=== PATIENT | female | born 1945 | race Two or more races ===

== ENCOUNTER → 2023-03-24 | Outpatient (CLI) | payer MEDICARE, BC ==
[~2023-03-24] VITALS: Ht 149.9 cm; Wt 66.7 kg
== END | disposition home or self-care (01) ==
LOC: Rad HDHVI 13:20
PROVIDERS: ATTEND Internal Medicine Cardiovascular Disease
DX: Z01.810 Encounter for preprocedural cardiovascular examination (principal); I48.91 Unspecified atrial fibrillation; I10 Essential (primary) hypertension; Q23.1 Congenital insufficiency of aortic valve; R06.02 Shortness of breath; R94.31 Abnormal electrocardiogram [ECG] [EKG]; E78.00 Pure hypercholesterolemia, unspecified; Z79.82 Long term (current) use of aspirin; Z79.899 Other long term (current) drug therapy
CPT/HCPCS: 78452; 93017; 96374; A9500

== ENCOUNTER → 2023-04-28 | Outpatient (CLI) | payer MEDICARE, BC ==
[~2023-04-28] MED LIST: ASPI-543 PO; FURO40TA4 PO; LEVO88TA4 PO; LOSA50TA46 PO; METO-289 PO; POTA-228 PO; RIVA20TA PO; SIMV40TA18 PO
[2023-04-28 13:07] VITALS: BP 115/66; PULSE 109; RESP 18; O2SAT 97
[2023-04-28 13:25] VITALS: BP 104/58; PULSE 92; RESP 18; O2SAT 97
== END | disposition home or self-care (01) ==
LOC: CHF HDHVI 12:52
PROVIDERS: ATTEND Internal Medicine Cardiovascular Disease
DX: Z01.818 Encounter for other preprocedural examination (principal); I48.91 Unspecified atrial fibrillation; R94.31 Abnormal electrocardiogram [ECG] [EKG]; I51.7 Cardiomegaly
CPT/HCPCS: 93005; G0463

== ENCOUNTER 2023-05-01 07:33 | Day surgery (SDC) | payer MEDICARE, BC ==
[2023-04-28 15:00] LABS: Basophils # (auto) 0.1 10 ^3/uL (0-0.2); Basophils % (auto) 0.6 % (0.0-2.0); Eosinophils # (auto) 0.1 10 ^3/uL (0-0.8); Eosinophils % (auto) 1.4 % (0.0-7.0); Hematocrit 41.6 % (36.0-46.0); Hemoglobin 14.2 g/dL (12.2-16.2); Lymphocytes % (auto) 22.3 % (10.0-50.0); Mean Corpuscular Volume 94.2 fL (80.0-100.0); Monocytes # (auto) 0.8 10 ^3/uL (0-1.3); Monocytes % (auto) 8.6 % (0.0-12.0); Neutrophils # (auto) 5.9 10 ^3/uL (1.6-8.6); Neutrophils % (auto) 67.1 % (37.0-80.0); Nucleated Red Blood Cells % 0.1 %; Red Blood Cells 4.42 10^6/uL (4.0-5.20); Red Cell Distribution Width 14.4 % (11.8-14.3); White Blood Cell 8.9 10^3/uL (4.4-10.8)
[2023-04-28 15:18] LABS: INR 1.4 (0.9-1.15); Partial Thromboplastin Time 37.3 SEC (24.5-34.5); Prothrombin Time 14.4 sec (9.3-11.8)
[2023-04-28 15:46] LABS: Anion Gap 10 (5-15); Carbon Dioxide 28 mmol/L (20-30); Chloride 98 mmol/L (98-107); Potassium 3.2 mmol/L (3.5-5.1); Sodium 136 mmol/L (136-145)
[2023-04-28 15:48] LABS: Calcium 9.4 mg/dL (8.7-10.4)
[2023-04-28 15:52] LABS: Blood Urea Nitrogen 17 mg/dL (9-23); Glucose 91 mg/dL (74-106)
[2023-05-01] VITALS (11 sets, daily range): BP systolic 80–117; BP diastolic 46–68; PULSE 88–105; RESP 12–21; TEMP 97.6; O2SAT 94–97
[~2023-05-01] VITALS: Ht 149.9 cm; Wt 64.4 kg
[2023-05-01] MEDS ORDERED: fentaNYL CITRATE 100 MCG/2 ML VL ONE (09:57)
[2023-05-01] MEDS ORDERED: ANGIOMAX 250 MG VIAL IV ONE (09:57)
[2023-05-01] MEDS ORDERED: MIDAZOLAM HCL 2MG/2ML 2ml VIAL (1mg/ml) ONE (09:58)
[2023-05-01] MEDS ORDERED: LIDOCAINE 2%HCL (LOCAL ANESTH.) INJ 20ML MDV ONE (09:58)
[2023-05-01] MEDS ORDERED: IOHEXOL 350 MG/ML 100ML IJ ONE (09:58)
[2023-05-01] MEDS ORDERED: methylPREDNISolone SOD SUCC 125 MG/2 ML VL ONE (09:58)
[2023-05-01] MEDS ORDERED: SODIUM CHL 0.9% 0 ML ONE (09:58)
[2023-05-01] MEDS ORDERED: diphenhdrAMINE HCL 50 MG/1 ML VL ONE (09:59)
[2023-05-01] MEDS ORDERED: FAMOTIDINE (10MG/ML) 2ML VL IV ONE (09:59)
== END 2023-05-01 13:49 | disposition home or self-care (01) ==
LOC: CATH 07:33
PROVIDERS: ATTEND Internal Medicine Cardiovascular Disease
DX: I48.91 Unspecified atrial fibrillation (principal); I11.0 Hypertensive heart disease with heart failure; I25.2 Old myocardial infarction; E78.5 Hyperlipidemia, unspecified; I50.22 Chronic systolic (congestive) heart failure
CPT/HCPCS: 36415; 80048; 85025; 85610; 85730; 93458; C1894; J1200; J1644; J2250; J2930; J3010; Q9967; 99152; J3490

== ENCOUNTER → 2023-06-04 | Outpatient (CLI) | payer MEDICARE, BC ==
[~2023-06-04] MED LIST changes: +FURO20TA3 PO
[2023-06-04 09:10] VITALS: BP 137/81; PULSE 112; RESP 16; O2SAT 98
[2023-06-04 09:35] VITALS: BP 134/74; PULSE 103; RESP 16; O2SAT 98
== END | disposition home or self-care (01) ==
LOC: CHF HDHVI 09:03
PROVIDERS: ATTEND Internal Medicine Cardiovascular Disease
DX: Z01.818 Encounter for other preprocedural examination (principal); R94.31 Abnormal electrocardiogram [ECG] [EKG]; I10 Essential (primary) hypertension; R06.02 Shortness of breath; I48.91 Unspecified atrial fibrillation
CPT/HCPCS: 93005; G0463

== ENCOUNTER 2023-06-05 10:11 | Day surgery (SDC) | payer MEDICARE, BC ==
[2023-06-04 11:07] LABS: Basophils # (auto) 0 10 ^3/uL (0-0.2); Basophils % (auto) 0.6 % (0.0-2.0); Eosinophils # (auto) 0.1 10 ^3/uL (0-0.8); Eosinophils % (auto) 1.1 % (0.0-7.0); Hematocrit 39.3 % (36.0-46.0); Hemoglobin 13.2 g/dL (12.2-16.2); Lymphocytes # (auto) 1.3 10 ^3/uL (0.4-5.4); Mean Corpuscular Hemoglobin 31.8 pg (28.0-32.0); Mean Corpuscular Hgb Conc. 33.7 g/dL (32.0-36.0); Mean Corpuscular Volume 94.5 fL (80.0-100.0); Monocytes # (auto) 0.6 10 ^3/uL (0-1.3); Monocytes % (auto) 8.9 % (0.0-12.0); Neutrophils # (auto) 4.9 10 ^3/uL (1.6-8.6); Neutrophils % (auto) 70.4 % (37.0-80.0); Nucleated Red Blood Cells % 0.1 %; Red Blood Cells 4.15 10^6/uL (4.0-5.20); Red Cell Distribution Width 14.9 % (11.8-14.3)
[2023-06-04 11:14] LABS: Chloride 104 mmol/L (98-107); Potassium 3.5 mmol/L (3.5-5.1); Sodium 140 mmol/L (136-145)
[2023-06-04 11:16] LABS: Calcium 9.3 mg/dL (8.5-10.1)
[2023-06-04 11:20] LABS: BUN/Creatinine Ratio 17.6 (10.0-20.0); Blood Urea Nitrogen 13 mg/dL (9-23); Glucose 100 mg/dL (74-106); INR 1.07 (0.9-1.15); Partial Thromboplastin Time 27.2 SEC (24.5-34.5); Prothrombin Time 11.2 sec (9.3-11.8)
[2023-06-04 12:30] LABS: Anion Gap 11 (5-15); Carbon Dioxide 25 mmol/L (20-30)
[~2023-06-05] VITALS: Ht 149.9 cm; Wt 63.5 kg
[2023-06-05] MEDS ORDERED: LIDOCAINE 2%HCL (LOCAL ANESTH.) INJ 20ML MDV ONE (12:53)
[2023-06-05] MEDS ORDERED: VANCOMYCIN HCL 1000 MG VL ONE (13:08)
[2023-06-05] MEDS ORDERED: fentaNYL CITRATE 100 MCG/2 ML VL ONE (13:08)
[2023-06-05] MEDS ORDERED: VANCOMYCIN 1GM/250ML 250 ML IV ONE (13:09)
[2023-06-05] MEDS ORDERED: MIDAZOLAM HCL 2MG/2ML 2ml VIAL (1mg/ml) ONE (13:09)
[2023-06-05] MEDS ORDERED: methylPREDNISolone SOD SUCC 125 MG/2 ML VL ONE (13:21)
[2023-06-05] MEDS ORDERED: IODIXANOL 320MG/ML 100ML BTL IV ONE (13:30)
[2023-06-05] MEDS ORDERED: HYDROmorphone HCL 2 MG/ML VL/or syr ONE (14:10)
[2023-06-05] MEDS ORDERED: ONDANSETRON HCL 4 MG/2 ML VIAL IV PRN (16:00)
[2023-06-05] MEDS ORDERED: ONDANSETRON HCL 4 MG/2 ML VIAL ONE (16:11)
== END 2023-06-05 16:45 | disposition home or self-care (01) ==
LOC: CATH 10:11
PROVIDERS: ATTEND Internal Medicine Cardiovascular Disease
DX: Z45.010 Encounter for checking and testing of cardiac pacemaker pulse generator [battery] (principal); I48.91 Unspecified atrial fibrillation; I42.9 Cardiomyopathy, unspecified; I25.5 Ischemic cardiomyopathy; I50.22 Chronic systolic (congestive) heart failure; Z91.041 Radiographic dye allergy status; Z79.82 Long term (current) use of aspirin
CPT/HCPCS: 33264; 36415; 71045; 80048; 85025; 85610; 85730; 93005; C1769; C1882; C1894; C1895; C1898; J1170; J2250; J2405; J2930; J3010; J3370; Q9967; 99152; 99153

== ENCOUNTER 2023-06-26 11:52 | Emergency (ER) | payer MEDICARE, BC ==
[~2023-06-26] VITALS: Ht 149.9 cm; Wt 62.3 kg
[~2023-06-26 11:52] MED LIST changes: -FURO40TA4 PO
[2023-06-26] MEDS ORDERED: CEPH500C PO (14:54)
[2023-06-26 14:56] VITALS: BP 130/71; PULSE 83; RESP 16; TEMP 96.7; O2SAT 98
== END 2023-06-26 15:04 | disposition home or self-care (01) ==
LOC: ER 11:52
DX: S20.211A Contusion of right front wall of thorax, initial encounter (principal); Z79.82 Long term (current) use of aspirin; Z79.899 Other long term (current) drug therapy; Z88.8 Allergy status to other drugs, medicaments and biological substances; X58.XXXA Exposure to other specified factors, initial encounter; Y93.89 Activity, other specified; Y92.89 Other specified places as the place of occurrence of the external cause; Y99.8 Other external cause status

== ENCOUNTER → 2024-01-21 | Outpatient (CLI) | payer MEDICARE, BC ==
[~2024-01-21] MED LIST changes: +CEPH500C PO; +LOSA-534 PO; -LOSA50TA46 PO
== END | disposition home or self-care (01) ==
LOC: Rad HDHVI 09:07
PROVIDERS: ATTEND Internal Medicine Cardiovascular Disease
DX: I08.8 Other rheumatic multiple valve diseases (principal)
CPT/HCPCS: 93306

== ENCOUNTER → 2024-03-22 | Outpatient (CLI) | payer MEDICARE, BC ==
[~2024-03-22] MED LIST changes: +CHOL100079 OR; +DIGO0.12 PO; +POM PO
[2024-03-22 10:16] VITALS: BP 121/62; PULSE 80; RESP 16; O2SAT 98
[2024-03-22 10:42] VITALS: BP 132/63; PULSE 80; RESP 16; O2SAT 98
== END | disposition home or self-care (01) ==
LOC: Rad HDHVI 09:59
PROVIDERS: ATTEND Internal Medicine Cardiovascular Disease
DX: Z01.818 Encounter for other preprocedural examination (principal); M43.8X4 Other specified deforming dorsopathies, thoracic region
CPT/HCPCS: 71046; 93005; G0463

== ENCOUNTER 2024-03-25 08:57 | Day surgery (SDC) | payer MEDICARE, BC ==
[2024-03-22 12:50] LABS: Basophils # (auto) 0 10 ^3/uL (0-0.2); Basophils % (auto) 0.4 % (0.0-2.0); Eosinophils # (auto) 0.1 10 ^3/uL (0-0.8); Eosinophils % (auto) 0.7 % (0.0-7.0); Hematocrit 37.8 % (36.0-46.0); Lymphocytes # (auto) 1.8 10 ^3/uL (0.4-5.4); Mean Corpuscular Hemoglobin 32.6 pg (28.0-32.0); Mean Corpuscular Hgb Conc. 34.3 g/dL (32.0-36.0); Mean Corpuscular Volume 94.9 fL (80.0-100.0); Monocytes # (auto) 0.7 10 ^3/uL (0-1.3); Monocytes % (auto) 7.8 % (0.0-12.0); Neutrophils # (auto) 6.5 10 ^3/uL (1.6-8.6); Neutrophils % (auto) 71.1 % (37.0-80.0); Platelet Count (auto) 227 10^3/uL (140-450); Red Blood Cells 3.98 10^6/uL (4.0-5.20); Red Cell Distribution Width 15.3 % (11.8-14.3); White Blood Cell 9.2 10^3/uL (4.4-10.8)
[2024-03-22 13:06] LABS: INR 1.21 (0.9-1.15); Partial Thromboplastin Time 30.7 SEC (24.5-34.5); Prothrombin Time 12.6 sec (9.3-11.8)
[2024-03-22 13:19] LABS: Chloride 103 mmol/L (98-107); Potassium 3.6 mmol/L (3.5-5.1); Sodium 141 mmol/L (136-145)
[2024-03-22 13:20] LABS: Anion Gap 11 (5-15); Carbon Dioxide 27 mmol/L (20-30)
[2024-03-22 13:21] LABS: Calcium 9.6 mg/dL (8.7-10.4)
[2024-03-22 13:25] LABS: BUN/Creatinine Ratio 17.7 (10.0-20.0); Blood Urea Nitrogen 14 mg/dL (9-23); Glucose 105 mg/dL (74-106)
[~2024-03-25] VITALS: Ht 149.9 cm; Wt 57.6 kg
[~2024-03-25 08:57] MED LIST changes: -ASPI-543 PO; -CEPH500C PO
[2024-03-25] MEDS ORDERED: methylPREDNISolone SOD SUCC 125 MG/2 ML VL ONE (14:07)
[2024-03-25] MEDS ORDERED: diphenhdrAMINE HCL 50 MG/1 ML VL ONE (14:07)
[2024-03-25] MEDS ORDERED: ANGIOMAX 250 MG VIAL IV ONE (14:07)
[2024-03-25] MEDS ORDERED: SODIUM CHL 0.9% 0 ML ONE (14:08)
[2024-03-25] MEDS ORDERED: LIDOCAINE 2%HCL (LOCAL ANESTH.) INJ 20ML MDV ONE (14:08)
[2024-03-25] MEDS ORDERED: fentaNYL CITRATE 100 MCG/2 ML VL ONE (14:08)
[2024-03-25] MEDS ORDERED: MIDAZOLAM HCL 2MG/2ML 2ml VIAL (1mg/ml) ONE (14:08)
[2024-03-25] MEDS ORDERED: IODIXANOL 320MG/ML 100ML BTL IV ONE (14:09)
[2024-03-25] MEDS ORDERED: FAMOTIDINE (10MG/ML) 2ML VL IV ONE (14:09)
[2024-03-25 15:04] VITALS: BP 144/72; PULSE 91; RESP 14; TEMP 97.8; O2SAT 93
[2024-03-25 15:13] VITALS: BP 136/66; PULSE 91; RESP 14; O2SAT 98
[2024-03-25 15:28] VITALS: BP 141/58; PULSE 91; RESP 20; O2SAT 98
[2024-03-25 15:43] VITALS: BP 134/66; PULSE 91; RESP 20; O2SAT 98
[2024-03-25 15:58] VITALS: BP 130/61; PULSE 91; RESP 18; O2SAT 98
== END 2024-03-25 17:27 | disposition home or self-care (01) ==
LOC: CATH 08:57
PROVIDERS: ATTEND Internal Medicine Cardiovascular Disease
DX: I08.0 Rheumatic disorders of both mitral and aortic valves (principal); I11.0 Hypertensive heart disease with heart failure; I50.9 Heart failure, unspecified; I42.0 Dilated cardiomyopathy; I48.91 Unspecified atrial fibrillation; E78.5 Hyperlipidemia, unspecified; E03.9 Hypothyroidism, unspecified; Z85.3 Personal history of malignant neoplasm of breast; Z95.810 Presence of automatic (implantable) cardiac defibrillator; Z91.041 Radiographic dye allergy status
CPT/HCPCS: 36415; 80048; 85025; 85610; 85730; 93460; C1760; C1894; J1200; J1644; J2250; J2919; J3010; Q9967; 99152; J3490

== ENCOUNTER → 2024-04-14 | Outpatient (CLI) | payer MEDICARE, BC ==
[~2024-04-14] MED LIST changes: +GARL200T PO; +OMEG120015 PO
[2024-04-14 09:12] VITALS: BP 135/64; PULSE 76; RESP 18; O2SAT 97
[2024-04-14 09:32] VITALS: BP 133/63; PULSE 74; RESP 18; O2SAT 97
== END | disposition home or self-care (01) ==
LOC: Rad HDHVI 09:06
PROVIDERS: ATTEND Internal Medicine Cardiovascular Disease
DX: Z01.818 Encounter for other preprocedural examination (principal); I35.0 Nonrheumatic aortic (valve) stenosis; R06.02 Shortness of breath
CPT/HCPCS: 71046; 93005; G0463

== ENCOUNTER 2024-04-15 09:56 | Day surgery (SDC) | payer MEDICARE, BC ==
[2024-04-14 11:50] LABS: Basophils # (auto) 0 10 ^3/uL (0-0.2); Basophils % (auto) 0.3 % (0.0-2.0); Eosinophils # (auto) 0.1 10 ^3/uL (0-0.8); Eosinophils % (auto) 0.6 % (0.0-7.0); Hematocrit 40.5 % (36.0-46.0); Hemoglobin 13.9 g/dL (12.2-16.2); Lymphocytes # (auto) 1.6 10 ^3/uL (0.4-5.4); Lymphocytes % (auto) 19.5 % (10.0-50.0); Mean Corpuscular Hemoglobin 32.8 pg (28.0-32.0); Mean Corpuscular Hgb Conc. 34.4 g/dL (32.0-36.0); Mean Corpuscular Volume 95.3 fL (80.0-100.0); Monocytes # (auto) 0.7 10 ^3/uL (0-1.3); Monocytes % (auto) 8.8 % (0.0-12.0); Neutrophils # (auto) 5.9 10 ^3/uL (1.6-8.6); Neutrophils % (auto) 70.8 % (37.0-80.0); Platelet Count (auto) 239 10^3/uL (140-450); Red Blood Cells 4.25 10^6/uL (4.0-5.20); Red Cell Distribution Width 14.9 % (11.8-14.3); White Blood Cell 8.4 10^3/uL (4.4-10.8)
[2024-04-14 12:03] LABS: INR 1.5 (0.9-1.15); Partial Thromboplastin Time 38.5 SEC (24.5-34.5); Prothrombin Time 15.4 sec (9.3-11.8)
[2024-04-14 12:09] LABS: Anion Gap 8 (5-15); Carbon Dioxide 28 mmol/L (20-31); Chloride 104 mmol/L (98-107); Potassium 3.8 mmol/L (3.5-5.1); Sodium 140 mmol/L (136-145)
[2024-04-14 12:11] LABS: Calcium 9.7 mg/dL (8.7-10.4)
[2024-04-14 12:15] LABS: BUN/Creatinine Ratio 18.5 (10.0-20.0); Blood Urea Nitrogen 15 mg/dL (9-23); Glucose 106 mg/dL (74-106)
[~2024-04-15] VITALS: Ht 149.9 cm; Wt 57.6 kg
[2024-04-15] MEDS: MIDAZOLAM HCL 2MG/2ML 2ml VIAL (1mg/ml) IV ONE (11:28)
[2024-04-15 11:42] VITALS: BP 138/63; PULSE 75; RESP 19; O2SAT 100
[2024-04-15 11:59] VITALS: BP 121/48; PULSE 75; RESP 20; O2SAT 100
--- NOTE | 2024-04-15 12:00 | DVHHP2 ---
Admitting Diagnosis: PT WITH MITRAL VALVE STENOSIS ELIANA TO DEFINE ANATOMY History of Present Illness PT S/P L/RHC NOW ANGIOGRAM RESULTS CONSISTENT WITH MV STENOSIS PT SCHEDULED FOR ELIANA Past Medical History The patient has history of congestive heart failure, dilated cardiomyopathy, status post AICD implantation, systolic heart dysfunction, history of hyperlipidemia and hypertension, history of atrial fibrillation, history of hypothyroidism, now with echocardiogram showing heavily calcified aortic valve, mitral valve stenosis with heavy calcium. The patient is now to undergo left and right heart catheterization. Risks and benefits were explained to the patient. The patient understands and agrees. REVIEW OF SYSTEMS: The patient denies any fever or chills. No melena or hematochezia. No hematemesis or hemoptysis. She has coagulopathy because of atrial fibrillation. She denies any syncopal episode. No history of CVA. No history of seizure disorder. No history of any movement disorder. No GI symptomatology. No diarrhea, no constipation. No liver disease. At this time, stool guaiac. No history of any suprapubic tenderness. Pulmonary, no history of COPD. No tobacco use, no alcohol use. She has no history of peripheral vascular disease as well. HEENT: Pupils are equal, reactive. Funduscopic exam is benign. No sclerae anicteric. No papilledema noted. No AV nicking. No exudates noted. Tympanic membranes are negative. Oral mucosa moist. Posterior pharynx without exudate. NECK: JVD about 3-4 cm above the angle of Camilo. Carotid pulses are 2+ symmetrical, normal upstroke and contour. No bruits appreciated. PULMONARY: Clear to auscultation. CARDIOVASCULAR: Regular rate without S3, without S4. PMI is not displaced. ABDOMEN: Soft, nontender. Normal bowel sounds. Liver approximately 5 cm. Stool guaiac is negative. No epigastric tenderness, no suprapubic tenderness, no CVA tenderness. NEUROLOGIC: The patient is intact. DTRs are 2+ symmetrical. Cranial nerves 2-12 within normal limits. EXTREMITIES: 1+ pulses, 1+ edema. Past Surgical History S/P AICD S/P L/RHC Family History NEGATIVE Social History NEGATIVE Allergies: Coded Allergies: Iodine (Verified Allergy, Unknown, 04/14/24) Home Meds Reported Medications Patients Own Medication (PATIENTS OWN MEDICATION) ., PO DAILY for MAG/B-COMP SAUL/ZINC PTS OWN MED-OBTAIN FROM PT AND SEND TO RX DRUG: FREQ: RX# EXP: DATE DISP: TECH: RPH: 04/14/24 Fish Oil (Fish Oil) 1,200 Mg Cap, 1200 MG PO DAILY for supplement, CAP 04/14/24 Allium Sativan Extract (GARLIC) 200 Mg Tab, 100 MG PO DAILY for supplement, TAB 04/14/24 Digoxin (Digoxin) 125 Mcg Tab, 125 MCG PO DAILY for ARRHYTHMIA, TAB 03/22/24 Patients Own Medication (PATIENTS OWN MEDICATION) ., 2 TAB PO DAILY for CALCIUM CITRATE PTS OWN MED-OBTAIN FROM PT AND SEND TO RX DRUG: FREQ: RX# EXP: DATE DISP: TECH: RPH: 03/22/24 Cholecalciferol (VITAMIN D3) 1,000 Unit Chw, 1000 UNIT OR DAILY for SUPPLEMENT, TAB.CHEW 03/22/24 Metoprolol Succinate (Metoprolol Succinate Er) 50 Mg Tab, 100 MG PO DAILY for HTN for 30 Days, MG 03/22/24 Furosemide (Furosemide) 20 Mg Tab, 20 MG PO DAILY 06/04/23 Rivaroxaban (XARELTO) 20 Mg Tab, 1 TAB PO DAILY for A. FIB, #30 TAB 11 Refills 04/28/23 Potassium Chloride (Potassium Chloride ER) 10 Meq Tab, 20 MEQ PO DAILY for SUPPLEMENT, TAB 04/28/23 Simvastatin (Simvastatin) 40 Mg Tab, 40 MG PO DAILY for HIGH CHOLESTEROL for 30 Days 04/28/23 Losartan Potassium (Losartan Potassium) 50 Mg Tab, 50 MG PO DAILY for HTN for 30 Days, MG 04/28/23 Levothyroxine Sodium (Levothyroxine Sodium) 88 Mcg Tab, 88 MCG PO QAM for LOW THYROID for 30 Days, MCG 04/28/23 Physical Exam HEENT: Pupils are equal, reactive. Funduscopic exam is benign. No sclerae anicteric. No papilledema noted. No AV nicking. No exudates noted. Tympanic membranes are negative. Oral mucosa moist. Posterior pharynx without exudate. NECK: JVD about 3-4 cm above the angle of Camilo. Carotid pulses are 2+ symmetrical, normal upstroke and contour. No bruits appreciated. PULMONARY: Clear to auscultation. CARDIOVASCULAR: Regular rate without S3, without S4. PMI is not displaced. ABDOMEN: Soft, nontender. Normal bowel sounds. Liver approximately 5 cm. Stool guaiac is negative. No epigastric tenderness, no suprapubic tenderness, no CVA tenderness. NEUROLOGIC: The patient is intact. DTRs are 2+ symmetrical. Cranial nerves 2-12 within normal limits. EXTREMITIES: 1+ pulses, 1+ edema. Results Labs Test 04/14/24 11:08 Range/Units White Blood Count 8.4 4.4-10.8 10^3/uL Red Blood Count 4.25 4.0-5.20 10^6/uL Hemoglobin 13.9 12.2-16.2 g/dL Hematocrit 40.5 36.0-46.0 % Mean Corpuscular Volume 95.3 80.0-100.0 fL Mean Corpuscular Hemoglobin 32.8 H 28.0-32.0 pg Mean Corpuscular Hemoglobin Concent 34.4 32.0-36.0 g/dL Red Cell Distribution Width 14.9 H 11.8-14.3 % Platelet Count 239 140-450 10^3/uL Mean Platelet Volume 8.4 6.9-10.8 fL Neutrophils (%) (Auto) 70.8 37.0-80.0 % Lymphocytes (%) (Auto) 19.5 10.0-50.0 % Monocytes (%) (Auto) 8.8 0.0-12.0 % Eosinophils (%) (Auto) 0.6 0.0-7.0 % Basophils (%) (Auto) 0.3 0.0-2.0 % Neutrophils # (Auto) 5.9 1.6-8.6 10 ^3/uL Lymphocytes # (Auto) 1.6 0.4-5.4 10 ^3/uL Monocytes # (Auto) 0.7 0-1.3 10 ^3/uL Eosinophils # (Auto) 0.1 0-0.8 10 ^3/uL Basophils # (Auto) 0 0-0.2 10 ^3/uL Nucleated Red Blood Cells 0.0 % Prothrombin Time 15.4 H 9.3-11.8 sec Prothrombin Time INR 1.50 H 0.9-1.15 Activated Partial Thromboplast Time 38.5 H 24.5-34.5 SEC Sodium Level 140 136-145 mmol/L Potassium Level 3.8 3.5-5.1 mmol/L Chloride Level 104 98-107 mmol/L Carbon Dioxide Level 28 20-31 mmol/L Anion Gap 8 5-15 Blood Urea Nitrogen 15 9-23 mg/dL Creatinine 0.81 0.550-1.02 mg/dL Glomerular Filtration Rate Calc 74 >90 mL/min BUN/Creatinine Ratio 18.5 10.0-20.0 Serum Glucose 106 74-106 mg/dL Calcium Level 9.7 8.7-10.4 mg/dL Admitting Diagnosis: DIALTED CM HFrEF CHRONIC MV STENOSIS Plan ELIANA Plan discussed with: Patient DISHA PIÑA MD Apr 15, 2024 12:00
[2024-04-15 12:14] VITALS: BP 124/53; PULSE 75; RESP 20; O2SAT 100
--- NOTE | 2024-04-15 12:24 | DVHOP ---
DATE OF SURGERY: 04/15/2024 INDICATIONS: This is a patient who is 78 years old with a history of congestive heart failure, heart failure with reduced ejection-fraction. Status post AICD implantation, with status post left and right heart catheterization and showed the patient to have possible severe mitral valve stenosis. The patient is now to undergo ELIANA to better define the mitral valve anatomy. PROCEDURES: The patient was given adequate conscious sedation using an Omniplane transesophageal probe and standard transesophageal echo images were obtained. RESULTS: * The patient with diminished left ventricular ejection-fraction, EF less than 30%. * Left ventricular enlargement. * Left atrial enlargement. * Right atrial enlargement. * Mild tricuspid insufficiency. * [id number] mitral valve insufficiency. * Moderate aortic valve insufficiency. * Spontaneous contrast noted in the left ventricle as well as left atrium. * The patient's pressure halftime mitral valve shows a mitral valve area of between 2.9 and 3.1 cm2. CONCLUSION: At this time, the patient does have significant aortic and mitral valve stenosis. We will evaluate the patient for clinical presentation, maybe the patient may require a mitral valve replacement. We will continue to discuss. The patient is stable. We will continue to follow the patient. Mega Soria MD SA/SLIME TID: [id number] RECEIPT: [id number]
[2024-04-15 12:29] VITALS: BP 117/53; PULSE 75; RESP 17; O2SAT 100
--- NOTE | 2024-04-15 12:30 | DVHDS ---
DATE OF DISCHARGE: 04/15/2024 DISCHARGE DIAGNOSES: * The patient with [id number] mitral valve stenosis. * Diminished left ventricular ejection-fraction, EF less than 30%. Spontaneous contrast seen in left atrium and left ventricle. * Moderate aortic valve insufficiency. * Mild tricuspid insufficiency. * Moderate mitral insufficiency. HOSPITAL COURSE: The patient at this time with significant heart failure with reduced ejection-fraction, with now [id number] mitral valve stenosis. The patient will be discharged home, stable at the time of discharge. DISPOSITION: Home. ACTIVITY: As instructed. DIET: Will be 2-gram sodium diet. Mega Soria MD SA/SLIME TID: [id number] RECEIPT: [id number]
[2024-04-15 12:44] VITALS: BP 125/55; PULSE 75; RESP 17; O2SAT 100
== END 2024-04-15 13:05 | disposition home or self-care (01) ==
LOC: CATH 09:56
PROVIDERS: ATTEND Internal Medicine Cardiovascular Disease
DX: R06.02 Shortness of breath (principal); I11.0 Hypertensive heart disease with heart failure; I50.20 Unspecified systolic (congestive) heart failure; I08.3 Combined rheumatic disorders of mitral, aortic and tricuspid valves; E03.9 Hypothyroidism, unspecified; I48.91 Unspecified atrial fibrillation; I42.0 Dilated cardiomyopathy; E78.5 Hyperlipidemia, unspecified; Z91.041 Radiographic dye allergy status; Z95.810 Presence of automatic (implantable) cardiac defibrillator; Z85.3 Personal history of malignant neoplasm of breast; Z79.899 Other long term (current) drug therapy; Z79.890 Hormone replacement therapy; Z79.01 Long term (current) use of anticoagulants
CPT/HCPCS: 36415; 80048; 85025; 85610; 85730; 93312; 93325; J2250; 99152

== ENCOUNTER 2024-11-24 11:10 | Outpatient (CLI) | payer MEDICARE, BC ==
[2024-11-24 11:25] VITALS: BP 157/74; PULSE 99; RESP 20; O2SAT 97
[2024-11-24] MEDS: NITROGLYCERIN 0.4 MG SL TAB SL ONE ×2 (13:02)
--- NOTE | 2024-11-24 13:33 | DVH ---
EXAM: XY CHEST TWO VIEWS ROUTINE CLINICAL HISTORY: SOB COMPARISON: XY CHEST TWO VIEWS ROUTINE on DOS: 04/14/24, XY CHEST TWO VIEWS ROUTINE on DOS: 03/22/24 TECHNIQUE: Frontal and lateral view of the chest was obtained FINDINGS: Lines and Tubes: Cardiac pacemaker projects over the right chest wall. Lungs: No focal consolidation. Pleura: No effusion. No pneumothorax. Cardiomediastinal contours: Unremarkable Atherosclerotic vascular calcifications of the thoracic aort a are noted. Bones: No acute osseous abnormality. IMPRESSION: No acute cardiopulmonary disease.
[2024-11-24 13:54] VITALS: BP 145/73; PULSE 97; RESP 19; O2SAT 95
== END 2024-11-24 17:00 | disposition home or self-care (01) ==
LOC: Rad HDHVI 11:10
PROVIDERS: ATTEND Internal Medicine Cardiovascular Disease
DX: R94.31 Abnormal electrocardiogram [ECG] [EKG] (principal); I70.0 Atherosclerosis of aorta; R06.02 Shortness of breath; R07.9 Chest pain, unspecified; I48.20 Chronic atrial fibrillation, unspecified
CPT/HCPCS: 71046; 93005; 94640; G0463

== ENCOUNTER 2024-11-29 11:03 | Outpatient (CLI) | payer MEDICARE, BC | END 2024-11-29 17:00 | disposition home or self-care (01) | LOC: Rad HDHVI 11:03 | PROVIDERS: ATTEND Internal Medicine Cardiovascular Disease | DX: I08.0 Rheumatic disorders of both mitral and aortic valves (principal) | CPT/HCPCS: 93306 ==